=== PATIENT | female | born 1950 | race Caucasian/White ===

== ENCOUNTER 2018-03-09 00:12 | Day surgery (SDC) | payer BC, MEDICARE ==
[~2018-03-09] VITALS: Ht 160 cm; Wt 60.3 kg
[~2018-03-09 00:12] MED LIST: ACET500T68 PO; AMOXICILLIN; ASPI-757 PO; CEP500 PO; CETI-176 PO; CYCL10TA29 PO; DICL-192 PO; FURO-45 PO; MULT1CAP59 PO; PER PO; TRAM-420 PO; TRAZ50 PO
[2018-03-09] MEDS ORDERED: BETAMETHASONE/ACETATE 6 MG/1ML ONE (07:46)
[2018-03-09] MEDS ORDERED: LIDOCAINE MPF 1% 5 ML VIAL ONE (07:46)
[2018-03-09] MEDS ORDERED: BUPIVACAIN 0.25% INJ 50ML VIAL ONE (07:47)
[2018-03-09 08:50] VITALS: BP 141/95
[2018-03-09] MEDS ORDERED: NORMOSOL R SOLN(*) 1000 ML BAG 1,000 ML IV PRN (09:30)
[2018-03-09] MEDS ORDERED: FAMOTIDINE 20 MG TAB PO ONE (09:30)
[2018-03-09] MEDS ORDERED: MIDAZOLAM 2 MG/2 ML VIAL IVP PRN (09:30)
[2018-03-09] MEDS ORDERED: LIDOCAINE/SOD BICARB 8.4% SYR ID ONE (09:30)
[2018-03-09] MEDS ORDERED: ceFAZolin(*) 1 GM VIAL 1 GM in NS(*) 0.9% 100 ML ADDVANT BAG 100 ML IVPB ONE (09:30)
[2018-03-09] MEDS ORDERED: ROPIVACAINE 0.2% 20 ML VIAL ONE (09:49)
[2018-03-09] MEDS ORDERED: LIDOCAINE 2% MDV 400MG/20ML VL ONE (09:49)
[2018-03-09] MEDS ORDERED: SUCCINYLCHOL CHL 100MG/5ML SYR IVP ONE (10:00)
[2018-03-09] MEDS ORDERED: ONDANSETRON 4 MG/2 ML VIAL ONE (10:22)
[2018-03-09] MEDS ORDERED: DEXAMETHASONE SOD PHOS 10MG/ML ONE (10:22)
[2018-03-09] MEDS ORDERED: PROPOFOL EMUL(*) 10MG/ML 20 ML 60 ML ONE (10:22)
[2018-03-09] MEDS ORDERED: ROCURONIUM BROM 10 MG/ML 10 ML ONE (10:22)
[2018-03-09] MEDS ORDERED: fentaNYL CITR 100 MCG/2 ML AMP ONE (10:22)
[2018-03-09] MEDS ORDERED: SUGAMMADEX SOD 200 MG/2 ML SDV ONE (11:26)
[2018-03-09] MEDS ORDERED: OXYC-865 PO (11:48)
[2018-03-09] MEDS: fentaNYL CITR 100 MCG/2 ML AMP ONE ×2 (12:03→12:18)
[2018-03-09] MEDS ORDERED: KETOROLAC 15 MG/ML VIAL ONE (12:17)
[2018-03-09 12:59] VITALS: BP 135/88
[2018-03-09 13:18] VITALS: BP 140/92
[2018-03-09 13:41] VITALS: BP 116/80
[2018-03-09 13:43] VITALS: BP 121/89
--- NOTE | 2018-03-09 21:08 | OPERATIVE REPORT 1 ---
EVENT DATE: March 09, 2018 SURGEON: Davide Ennis MD ANESTHESIOLOGIST: Rafy Barrett MD ANESTHESIA: General LMA anesthesia. MEDICAL CONSULTANT: IDANIA Guzman PREOPERATIVE DIAGNOSES 1. Right thumb metacarpophalangeal joint arthritis. 2. Middle finger trigger finger. 3. Left thumb trigger thumb. POSTOPERATIVE DIAGNOSES 1. Right thumb metacarpophalangeal joint arthritis. 2. Middle finger trigger finger. 3. Left thumb trigger thumb. PROCEDURES PERFORMED 1. A right thumb metacarpophalangeal joint fusion. 2. A right middle finger trigger finger release. 3. A left trigger thumb injection. FINDINGS The patient had a significant amount of arthritis in the MCP joint of the thumb and a tight A1 beth at the middle finger. ESTIMATED BLOOD LOSS Minimal. DRAINS None. COMPLICATIONS None. IMPLANTS USED Thumb fusion screw set. TOURNIQUET TIME About 57 minutes. SPECIMENS None. INDICATIONS AND HISTORY This patient is a 67-year-old female who presented to my clinic for evaluation of right thumb pain and irritation associated with arthritic changes as well as some trigger fingers on the middle finger on the right hand as well as the left thumb. She continued to have pain and irritation despite conservative management, so she wanted to go ahead with a right thumb MCP joint fusion today , March 09, 2018. We went over the risks and benefits associated with these, and informed consent was obtained at the last clinic visit. She also wanted to do the right middle finger trigger finger at the same time since she was already having that problem associated with it, and the left trigger thumb since she was going to be asleep was to be injected. 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 DESCRIPTION OF PROCEDURE The patient was brought in the operating room. She and the procedures were verified. She was placed supine on the operating table and induced and intubated by Anesthesia. The right upper extremity was then prepped and draped in the usual fashion. A timeout was observed verifying the correct patient and procedure. The standard incision was made over the dorsal aspect of the thumb. It was taken through the skin and subcutaneous tissue and through the extensor tendon. I was then able to go to the joint capsule itself and then able to identify the MCP joint. Once I went down through the joint capsule, I was then able to split the joint capsule and then clean off the dorsal aspects with the osteophytes and then able to get into the joint itself. Once I was able to get into the joint itself, I then was able to subluxate the proximal phalanx volarly in order to put a pin straight down the middle of the metacarpal. Once I was able to put the pin straight down the middle of the metacarpal, this was verified on C-arm images in order to verify that it was in good position. Once I did this, I then put in the standard drill from the set, and then I was able to then remove this and then put the subsequent reamer over the top part of this. I then put in the screw, which was the small screw from the set, and then was able to put this in a great position. In this way then, we were able to ream through this screw hole through the dorsal cortex in order make it amenable for the set screw for the distal portion. I was then able to free up the proximal phalanx and then drill a hole down the center portion of this. Once I was able to do this, I then reamed the cortex and got rid of some of the cartilage on this area. I then put in a 22 mm screw into the distal portion which was also a small interlocking taper end in order to then compress it. It did create a small ulnar deviation, but secondarily due to the patient's prior subluxation, this would be to her advantage, and so this was left in place on purpose. I then irrigated with copious amounts of saline. I made sure that we had good cortical contact between the bones. I put a little bit of bone graft into the area of the fusion and then was able to close the dorsal extensor tendon mass with a 3-0 Vicryl. This was then followed by 3-0 Vicryl in the subcutaneous tissue and then 4-0 nylon in the skin after irrigating again with a copious amount of saline. I then turned attention to the middle finger. I was able to make a small incision at the base of the metacarpal head and take it through the skin and subcutaneous tissue. There was a small cyst in this area which I decompressed, and I was able to raise a little bit of the fascia towards the proximal aspect of the hand. This was then followed by release of the A1 beth and the leading edge of the A2 beth via sharp dissection. I was then able to pull the tendons up and out of the wound. There were no signs of major adhesions or issues associated with this, and no signs of catching or popping associated with a trigger finger after this was done. I then irrigated again with copious amounts of saline and then closed this with a 4-0 nylon also in an interrupted mattress-type fashion. I then anesthetized these wounds with ropivacaine and dressed them with Xeroform , and the right hand was then splinted after a soft dressing. I then turned attention to the left thumb where I was able to put a small injection into the trigger thumb at the base of the thumb where the small nodule was. This was then dressed with a Band-Aid after being cleansed at the skin with alcohol. CLAIRE
== END 2018-03-09 12:59 | disposition home or self-care (01) ==
LOC: OR 00:12
PROVIDERS: ATTEND Orthopaedic Surgery
DX: M19.041 Primary osteoarthritis, right hand (principal); M65.331 Trigger finger, right middle finger; M65.312 Trigger thumb, left thumb
CPT/HCPCS: 26055; 26850; 76000; 94667; A4565; A9270; C1713; C1776; J0330; J0702; J1100; J1885; J2001; J2405; J2704; J2795; J3010; J3490